=== PATIENT | male | born 1970 | race Caucasian/White ===

== ENCOUNTER → 2016-10-29 | Outpatient (CLI) | payer BC, OTHER ==
[~2016-10-29] MED LIST: CLR10 PO; MULT-884 PO; POTA20TA13 PO
[2016-10-29 12:58] VITALS: BP 131/82; PULSE 79; TEMP 36.9; O2SAT 96
--- NOTE | 2016-10-29 18:22 | Radiation Oncology Follow-Up ---
Radiation Oncology Follow-Up Date of Visit Oct 29, 2016. Radiation Completion Date 02/14/15 Diagnosis (1) Sarcoma Status: Acute Onset Date: 11/30/2014 Permanent Comment: Large 8.2 cm right neck mass Right neck mass biopsied 11/28/2014 revealing carcinoma Repeat biopsy 11/30/2014 revealing sarcoma Status post completion of radiation and chemotherapy following RTOG 9514 - completed 02/11/2015 Status post right modified radical dissection 04/16/2015 - No residual tumor Adjuvant chemotherapy completed 07/2015 Last Edited By: Erika Henriquez on Oct 29, 2016 18:15 Interim History Mr. 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 The patient completed radiation therapy and chemotherapy in January 2015 and then proceeded to have a right modified radical next dissection on 04/16/[address] Mcguire at [facility]. The pathology revealed no evidence of residual tumor in the patient was subsequently treated with adjuvant chemotherapy which completed in July 2015; the patient follows with Dr. Pj Freedman and Nettie Mendoza and medical oncology. We are now seeing the patient back in follow-up evaluation. Overall, the patient is doing relatively well. He has no complaints currently. He denies any difficulty with swallowing, dryness in the throat or taste. He has no skin issues at this time. He states his energy, appetite and weight are all stable. Allergies Coded Allergies: Animal Dander (Verified Allergy, Unknown, SNEEZY, WATERY EYES, 07/22/15) Home Medications Scheduled Loratadine (Claritin), 10 MG PO DAILY Multiple Vitamin (Multi Vitamin Daily), 1 TAB PO DAILY Potassium Chloride Microencaps (Potassium Chloride Er), 1 TAB PO BID Review of Systems Gastrointestinal: Symptoms: WNL Oral: Symptoms: No Problems Respiratory: Symptoms: WNL Urinary: Symptoms: WNL Skin: Symptoms: No Problems Physical Exam Vital Signs Date Time Temp Pulse Resp B/P Pulse Ox O2 Delivery O2 Flow Rate FiO2 10/29/16 12:58 36.9 79 16 131/82 96 General Appearance: WD/WN, no apparent distress Eyes: normal inspection ENT: normal ENT inspection Neck: supple, no adenopathy, + pertinent finding (s/p right neck dissection) Respiratory/Chest: chest non-tender, lungs clear, normal breath sounds, no respiratory distress Neurologic/Psychiatric: 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 TECHNIQUE: Axial images of the neck were obtained following intravenous injection of 94 cc of Optiray 320 IV. COMPARISON STUDY: Neck CT May 07, 2016. FINDINGS: Visualized portions of the intracranial contents are unremarkable. Mastoid air cells are clear. No suspicious osseous lesions are present. There are post surgical findings consistent with a right neck dissection. Infiltration with loss of fat planes is unchanged since prior exam and likely post therapeutic. No enlarged lymph nodes are identified. The appearance of the operative bed is unchanged exam May 07, 2016. There are no pathologically enlarged cervical lymph nodes. The chest will be reported separately. IMPRESSION: Stable postoperative findings status post right neck dissection since CT of May 07, 2016. No evidence of recurrent malignancy. CT SCAN OF THE CHEST WITH IV CONTRAST - 08/06/2016 CLINICAL HISTORY: Sarcoma. COMPARISON STUDY: Chest CT scans dated 05/07/2016 and 11/29/2014. TECHNIQUE: Following the IV administration of 94 cc of Optiray 320, CT scan of the thorax was performed from the thoracic inlet to the upper abdomen. Images are reviewed in the axial, sagittal, and coronal planes. IV contrast was administered without complication. The examination is degraded by streak artifact from the right arm which could not be elevated above the chest. FINDINGS: Thyroid: Imaged portions of the thyroid gland are normal in size and attenuation. Thoracic aorta: The thoracic aorta is normal in caliber and demonstrates standard 3-vessel arch anatomy. No aneurysm or dissection is seen. Heart: The heart is top normal in size and configuration, and without pericardial effusion. The pulmonary trunk is normal in caliber. Lungs and pleural spaces: There are small foci of bibasilar atelectasis. A calcified granuloma is seen at the right lung base. No concerning pulmonary lesion is identified. There is no airspace consolidation or pleural effusion. The trachea and central airways are clear. Mediastinum: There is no mediastinal lymphadenopathy. Lisa: Clear. Axillae: There is no axillary lymphadenopathy. Upper abdomen: There is a small hiatal hernia. Hepatic steatosis is observed. Partially visualized upper abdominal viscera is otherwise within normal limits. See report of abdominal CT performed concurrently for detailed intra-abdominal findings. Skeletal structures: No lytic or blastic bony lesions are seen. A bone island is incidentally noted in the left fourth rib. IMPRESSION: 1. There is no evidence of intrathoracic metastatic disease and there has been no significant change from 05/07/2016. 2. The lungs are clear. 3. Hepatic steatosis. ABDOMEN AND PELVIS CT WITH IV AND ORAL CONTRAST - 08/06/2016 CT DOSE: HISTORY: Soft tissues are, Sarcoma, soft TISSUE 08/03/16 CREAK 1.10 TECHNIQUE: Multiaxial CT images of the abdomen and pelvis were performed following the use of intravenous and oral contrast. COMPARISON STUDY: 05/07/2016 FINDINGS: The lung bases are clear. The liver, spleen, gallbladder, pancreas, kidneys, and adrenal glands are within normal limits. No bowel wall thickening or obstruction. The pelvic organs are unremarkable. No suspicious lytic or blastic osseous lesions. IMPRESSION: No significant abnormality identified within the abdomen or pelvis. No change from the prior study Assessment & Plan Mr. 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 The patient is now here for follow-up evaluation. His most recent set of CT staging scans reveals no evidence of radiographic recurrence. Clinically, there is no evidence of recurrence as well. We are happy with his progress overall. We would like to see him back in one-year for follow-up evaluation. The patient still continues to closely follow with medical oncology and we will defer imaging studies to them. The patient was encouraged to call suggest any questions or concerns or if he would like to be seen earlier. Total Time In Follow-Up I spent 20 minutes examining and counseling the patient. I spent 15 minutes completing this note. Copy To Pj Freedman D.O.; Nettie Mendoza CRNP; Rudy Mcguire M.D.
== END | disposition home or self-care (01) ==
LOC: C.ONC 12:49
PROVIDERS: ATTEND Physician Assistant Medical
DX: Z08 Encounter for follow-up examination after completed treatment for malignant neoplasm (principal); Z92.3 Personal history of irradiation; Z85.89 Personal history of malignant neoplasm of other organs and systems

== ENCOUNTER → 2016-11-02 | Outpatient (CLI) | payer BC ==
--- NOTE | 2016-11-02 13:47 | DIAGNOSTIC IMAGING REPORT ---
BILATERAL CAROTID DOPPLER STUDY HISTORY: Mental status change HX OF NEOPLASM CONNECTIVE HEAD NECK FACE COMPARISON: None. TECHNIQUE: Real-time, grayscale, and color Doppler sonography of the carotid arteries was performed. Imaging reviewed in the transverse and longitudinal planes. All measurements were calculated based on NASCET criteria. FINDINGS: Antegrade flow is seen in the bilateral vertebral arteries. The brachial pressures are hemodynamically similar. The peak systolic velocity within the right ICA is 64. The right systolic ratio is 0.7. The peak systolic velocity within the left ICA is 57. The left systolic ratio is 0.8. IMPRESSION: No hemodynamically significant stenosis seen within the carotid arteries. Interval resection of the soft tissue mass Electronically signed by: Oren Leroy M.D. 11/02/2016 1:46 PM Dictated Date/Time: 11/02/2016 1:45 PM
== END | disposition home or self-care (01) ==
LOC: C.ULTR 12:50
PROVIDERS: ATTEND Radiology Radiation Oncology
DX: C49.0 Malignant neoplasm of connective and soft tissue of head, face and neck (principal)

== ENCOUNTER → 2016-11-06 | Outpatient (CLI) | payer BC ==
[~2016-11-06] MED LIST changes: +OPTIRAY 320 IV PRN
--- NOTE | 2016-11-06 15:03 | DIAGNOSTIC IMAGING REPORT ---
CT SCAN OF THE CHEST WITH IV CONTRAST CLINICAL HISTORY: Sarcoma. COMPARISON STUDY: Chest CT scans dated 08/06/2016 and 11/29/2014. TECHNIQUE: Following the IV administration of 93 cc of Optiray 320, CT scan of the thorax was performed from the thoracic inlet to the upper abdomen. Images are reviewed in the axial, sagittal, and coronal planes. IV contrast was administered without complication. The examination is degraded by streak artifact from the right arm which could not be elevated above the chest. FINDINGS: Thyroid: Imaged portions of the thyroid gland are normal in size and attenuation. Thoracic aorta: The thoracic aorta is normal in caliber and demonstrates standard 3-vessel arch anatomy. No aneurysm or dissection is seen. Heart: The heart is top normal in size and configuration, and without pericardial effusion. The pulmonary trunk is normal in caliber. Lungs and pleural spaces: There are small foci of bibasilar atelectasis. A calcified granuloma is seen at the right lung base. No concerning pulmonary lesion is identified. There is no airspace consolidation or pleural effusion. The trachea and central airways are clear. Mediastinum: There is no mediastinal lymphadenopathy. Lisa: Clear. Axillae: There is no axillary lymphadenopathy. Upper abdomen: There is a small hiatal hernia. Hepatic steatosis is observed. Partially visualized upper abdominal viscera is otherwise within normal limits. See report of abdominal CT performed concurrently for detailed intra-abdominal findings. Skeletal structures: No lytic or blastic bony lesions are seen. A bone island is incidentally noted in the left fourth rib. IMPRESSION: 1. There is no evidence of intrathoracic metastatic disease and there has been no significant change from 08/06/2016. 2. The lungs are clear. 3. Hepatic steatosis. Electronically signed by: Blair Byrne M.D. 11/06/2016 3:01 PM Dictated Date/Time: 11/06/2016 2:59 PM
--- NOTE | 2016-11-06 15:05 | DIAGNOSTIC IMAGING REPORT ---
ABDOMEN AND PELVIS CT WITH IV AND ORAL CONTRAST CT DOSE: 2402.46 mGy.cm HISTORY: SARCOMA, SOFT TISSUE TECHNIQUE: Multiaxial CT images of the abdomen and pelvis were performed following the use of intravenous and oral contrast. COMPARISON STUDY: None. FINDINGS: The lung bases are clear. The spleen, gallbladder, pancreas, kidneys, and adrenal glands are within normal limits. No bowel wall thickening or obstruction. Normal bladder. No suspicious lytic or blastic osseous lesions. Tiny fat-containing umbilical hernia. Hepatic steatosis. No hepatic masses. Normal appendix. No retroperitoneal lymphadenopathy. IMPRESSION: No change from the prior studies. No evidence for metastatic disease within the abdomen or pelvis. Electronically signed by: Mp Garza M.D. 11/06/2016 3:03 PM Dictated Date/Time: 11/06/2016 2:58 PM
== END | disposition home or self-care (01) ==
LOC: C.CTS 14:26
PROVIDERS: ATTEND Nurse Practitioner
DX: C49.0 Malignant neoplasm of connective and soft tissue of head, face and neck (principal)

== ENCOUNTER → 2017-02-11 | Outpatient (CLI) | payer BC ==
--- NOTE | 2017-02-11 11:23 | DIAGNOSTIC IMAGING REPORT ---
CHEST CT WITH CONTRAST CT DOSE: HISTORY: Sarcoma 02/08/17 0916 CREAK 1.30 TECHNIQUE: Multiaxial CT images of the chest were performed following the intravenous administration of contrast. COMPARISON: 11/06/2016 FINDINGS: The lungs are clear. The mediastinal vascular structures are within normal limits. No mediastinal or hilar lymphadenopathy. No pleural effusion or pneumothorax. Limited views of the upper abdomen demonstrate a normal liver and spleen. Fatty infiltration of the liver IMPRESSION: No significant abnormality identified within the chest. Fatty infiltration of liver. No change from the prior exam. Electronically signed by: Oren Leroy M.D. 02/11/2017 11:22 AM Dictated Date/Time: 02/11/2017 11:19 AM
--- NOTE | 2017-02-11 11:24 | DIAGNOSTIC IMAGING REPORT ---
CT ABD/PELVIS IV AND ORAL CONT CLINICAL HISTORY: Sarcoma COMPARISON STUDY: 11/06/2016 TECHNIQUE: Following the IV administration of 116 mL of Optiray-320, CT scan of the abdomen and pelvis was performed from the lung bases to the proximal femurs. Images are reviewed in the axial, sagittal, and coronal planes. IV contrast was administered without complication. CT DOSE: 2373.01 mGy.cm FINDINGS: Lower chest: The heart is normal in size and configuration, without pericardial effusion. The lung bases and pleural spaces are clear. Liver: There is mild hepatic steatosis. No focal masses are visualized. Gallbladder: Unremarkable. Spleen: Normal in size and attenuation. Pancreas: Unremarkable. Adrenal glands: Unremarkable. Kidneys: There is symmetric renal cortical enhancement. The kidneys are normal in size without hydronephrosis. Bowel: There are no transition zones indicate bowel obstruction. The appendix appears normal. There is no acute diverticulitis. Peritoneum: There is no intraperitoneal free air or abdominal ascites. There is a small fat-containing umbilical hernia. Vasculature: The abdominal aorta is normal in course and caliber. Adenopathy: None. Pelvic viscera: The bladder, and pelvic viscera are unremarkable. Skeletal structures: There is a stable 8 mm sclerotic lesion within the left symphysis pubis likely representing a bone island. No destructive lesions are visualized. IMPRESSION: No evidence of metastatic disease within the abdomen or pelvis. Electronically signed by: Gregg Kaufman M.D. 02/11/2017 11:23 AM Dictated Date/Time: 02/11/2017 11:20 AM
--- NOTE | 2017-02-11 11:39 | DIAGNOSTIC IMAGING REPORT ---
CT NECK WITH INTRAVENOUS CONTRAST. HISTORY: Sarcoma. Follow-up. TECHNIQUE: Multiaxial CT images of the neck was performed following the use of intravenous contrast. COMPARISON STUDY: CT neck 08/06/2016. FINDINGS: Visualized portions of the intracranial contents are unremarkable. Mastoid air cells are clear. No suspicious osseous lesions are present. There are post surgical findings consistent with a right neck dissection. Infiltration with loss of fat planes is unchanged since prior exam and likely post therapeutic. No enlarged lymph nodes are identified. The appearance of the operative bed is unchanged since the prior study. There are no pathologically enlarged cervical lymph nodes. Mild atrophy right parotid gland, unchanged. There appears be partial resection of the right internal jugular vein, unchanged. The carotid arteries are widely patent. Stable palatine tonsil hypertrophy The chest will be reported separately. IMPRESSION: Stable postoperative findings status post right neck dissection. No evidence of recurrent malignancy Electronically signed by: Mp Garza M.D. 02/11/2017 11:38 AM Dictated Date/Time: 02/11/2017 11:32 AM
== END | disposition home or self-care (01) ==
LOC: C.CTS 10:26
PROVIDERS: ATTEND Internal Medicine Hematology & Oncology
DX: C49.0 Malignant neoplasm of connective and soft tissue of head, face and neck (principal); K76.0 Fatty (change of) liver, not elsewhere classified

== ENCOUNTER → 2017-06-16 | Outpatient (CLI) | payer BC ==
--- NOTE | 2017-06-16 13:12 | DIAGNOSTIC IMAGING REPORT ---
CT OF THE CHEST WITH IV CONTRAST CLINICAL HISTORY: Sarcoma. Follow-up examination. COMPARISON STUDY: 02/09/2017 TECHNIQUE: Following the IV administration of 93 mL of Optiray-320, CT of the thorax was performed from the thoracic inlet to the lung bases. Images are reviewed in the axial, sagittal, and coronal planes. IV contrast was administered without complication. A dose lowering technique was utilized adhering to the principles of ALARA. CT DOSE: 2691.72 mGy.cm FINDINGS: Thyroid: Imaged portions of the thyroid gland are normal in appearance. Thoracic aorta: The thoracic aorta is normal in course and caliber, noting standard 3-vessel arch anatomy. No aneurysm or dissection is seen. Pulmonary vasculature: The pulmonary trunk is normal in caliber. There are no central filling defects identified to suggest pulmonary embolus. Note that this examination was not protocoled for the evaluation of pulmonary emboli. HEART: The heart is normal in size and configuration, without pericardial effusion. Lungs and pleural spaces: No pleural effusions are visualized. There is no focal pulmonary consolidation. Mediastinum: There is no mediastinal lymphadenopathy. Lisa: Clear. Axilla: Clear. Upper abdomen: Partially visualized upper abdominal viscera is within normal limits. Skeletal structures: There are no lytic or blastic osseous lesions. IMPRESSION: No acute intrathoracic findings. No CT evidence of intrathoracic metastatic disease. Electronically signed by: Gregg Kaufman M.D. 06/16/2017 1:11 PM Dictated Date/Time: 06/16/2017 1:07 PM
--- NOTE | 2017-06-16 13:28 | DIAGNOSTIC IMAGING REPORT ---
ABD/PELVIS IV AND ORAL CONT CT DOSE: HISTORY: Sarcoma SARCOMA TECHNIQUE: Multiaxial CT images of the abdomen and pelvis were performed following the use of intravenous and oral contrast. A dose lowering technique was utilized adhering to the principles of ALARA. COMPARISON STUDY: 02/11/2017 FINDINGS: Lung bases are considered clear. Small Calcified granuloma right base unchanged. Mild fatty infiltration of liver. Spleen is uniform. Small accessory spleen is present and is stable. Pancreas is uniform throughout. Bowel pattern is remarkable for scattered plaque diverticulosis. There is no evidence for acute diverticulitis. There is no significant abdominal pelvic or inguinal adenopathy. Several small inguinal nodes are present which are felt to be benign by size and morphology characteristics and are unchanged in the prior exam. The appendix is normal. Osseous structures demonstrate several benign bone islands unchanged from the prior exam. IMPRESSION: Negative study of the abdomen and pelvis. Mild fatty infiltration of liver. No change from the prior exam. The above report was generated using voice recognition software. It may contain grammatical, syntax or spelling errors. Electronically signed by: Oren Leroy M.D. 06/16/2017 1:27 PM Dictated Date/Time: 06/16/2017 1:15 PM
--- NOTE | 2017-06-16 13:31 | DIAGNOSTIC IMAGING REPORT ---
CT NECK WITH INTRAVENOUS CONTRAST. CLINICAL HISTORY: SARCOMA. Follow-up.. TECHNIQUE: Multiaxial CT images of the neck performed following the use of intravenous contrast. COMPARISON STUDY: Neck CT 02/11/2017. FINDINGS: The visualized brain parenchyma and orbits are unremarkable. Postoperative changes consistent with right neck dissection are again noted. Stable scarlike densities within the right neck at the resection site. No new soft tissue masses identified. Subcentimeter upper posterior neck/occipital lymph nodes remain stable. Dominant lymph node measures 6 mm. No significant cervical lymphadenopathy. Prominent some anterior gland remain stable. No soft tissue masses identified. The airway remains patent. The thyroid gland enhances normally. The lung apices are clear. No suspicious lytic or blastic osseous lesions. The paranasal sinuses and mastoid air cells are clear. The major cervical vessels partial resection of the right internal jugular vein is again noted. Otherwise, the remaining major cervical vessels enhance normally. Soft tissue surrounding the carotid bifurcation and proximal right internal carotid artery also remain stable and favors postoperative change. Partial resection/atrophy of the right parotid and submandibular glands are again noted. IMPRESSION: Overall, no significant change compared to prior study. No evidence for recurrent malignancy or metastatic disease. Postoperative changes within the right neck are again noted. Electronically signed by: Mp Garza M.D. 06/16/2017 1:29 PM Dictated Date/Time: 06/16/2017 1:18 PM
== END | disposition home or self-care (01) ==
LOC: C.CTS 12:36
PROVIDERS: ATTEND Family Medicine
DX: C49.0 Malignant neoplasm of connective and soft tissue of head, face and neck (principal)

== ENCOUNTER → 2017-11-02 | Outpatient (CLI) | payer BC ==
[~2017-11-02] MED LIST changes: -OPTIRAY 320 IV PRN
[2017-11-02 13:45] VITALS: BP 117/79; PULSE 84; TEMP 36.8; O2SAT 97
--- NOTE | 2017-11-02 16:01 | Radiation Oncology Follow-Up ---
Radiation Oncology Follow-Up Date of Visit Nov 02, 2017. 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 He has noted no changes to the neck. He has noted no masses or tenderness. He did have edema in the area of the chin. This is stable. He has had recheck scanning as well as laboratory studies which we have all been stable. He follows with medical oncology. He has had recheck CT scanning February 11, 2017 as well as June 16, 2017. Allergies Coded Allergies: Animal Dander (Verified Allergy, Unknown, SNEEZY, WATERY EYES, 07/22/15) Home Medications Scheduled Loratadine (Claritin), 10 MG PO DAILY Multiple Vitamin (Multi Vitamin Daily), 1 TAB PO DAILY Potassium Chloride Microencaps (Potassium Chloride Er), 1 TAB PO BID Review of Systems Gastrointestinal: Symptoms: WNL Oral: Symptoms: No Problems Respiratory: Symptoms: WNL Urinary: Symptoms: WNL Skin: Symptoms: No Problems Physical Exam Vital Signs Date Time Temp Pulse Resp B/P (MAP) Pulse Ox O2 Delivery O2 Flow Rate FiO2 11/02/17 13:45 36.8 84 20 117/79 97 Fatigue: None General Appearance: no apparent distress Eyes: normal inspection, EOMI ENT: normal ENT inspection, hearing grossly normal, pharynx normal, + pertinent finding (No trismus) Neck: + pertinent finding (Postoperative changes of the right neck. There are no visible or palpable lesions or lymphadenopathy. He has good range of motion of the neck.) Respiratory/Chest: lungs clear, no respiratory distress, no accessory muscle use Cardiovascular: regular rate, rhythm, no gallop, no murmur Neurologic/Psychiatric: no motor/sensory deficits, alert, normal mood/affect Skin: warm/dry Pain Management Patient Reports Pain: No Pain Management Plan He denies pain therefore requires no pain management. Laboratory Laboratory Results: were reviewed, and no pertinent findings Pathology Pathology Results: not applicable Imaging Imaging Studies: were reviewed, and pertinent findings noted below Imaging Comments Patient: JAVI MARTELL Address1: [address] Rec: [id number] Address2: Acct ID: [id number] [facility] Zip: [place] [address] Date: 1970 Sex: M Room/Bed: Ref Phy: No Doctor, Assigned SC: C.CTS Att Phy: Anuj Elizabeth D.O. Report #: [id number] Alexa Phy: No Doctor, Assigned Test: NCKW Admit Phy: Recruitment Intern: RADU Interpreting Phy: Mp Garza MD Diagnosis: SARCOMA Ordering Phy: Anuj Elizabeth D.O. Service Date: 06/16/17 Admit Date: 06/16/17 MNE: [id number] CONF: DICTATED BY: Mp Garza M.D.]] CC: Anuj Elizabeth D.O. No Doctor, Assigned Endcc: [~ rep ct add3]] CT NECK WITH INTRAVENOUS CONTRAST. CLINICAL HISTORY: SARCOMA. Follow-up.. TECHNIQUE: Multiaxial CT images of the neck performed following the use of intravenous contrast. COMPARISON STUDY: Neck CT 02/11/2017. FINDINGS: The visualized brain parenchyma and orbits are unremarkable. Postoperative changes consistent with right neck dissection are again noted. Stable scarlike densities within the right neck at the resection site. No new soft tissue masses identified. Subcentimeter upper posterior neck/occipital lymph nodes remain stable. Dominant lymph node measures 6 mm. No significant cervical lymphadenopathy. Prominent some anterior gland remain stable. No soft tissue masses identified. The airway remains patent. The thyroid gland enhances normally. The lung apices are clear. No suspicious lytic or blastic osseous lesions. The paranasal sinuses and mastoid air cells are clear. The major cervical vessels partial resection of the right internal jugular vein is again noted. Otherwise, the remaining major cervical vessels enhance normally. Soft tissue surrounding the carotid bifurcation and proximal right internal carotid artery also remain stable and favors postoperative change. Partial resection/atrophy of the right parotid and submandibular glands are again noted. IMPRESSION: Overall, no significant change compared to prior study. No evidence for recurrent malignancy or metastatic disease. Postoperative changes within the right neck are again noted. Electronically signed by: Mp Garza M.D. 06/16/2017 1:29 PM Dictated Date/Time: 06/16/2017 1:18 PM Patient: JAVI MARTELL Address1: [address] Rec: [id number] Address2: Acct ID: [id number] [facility] Zip: [place] [address] Date: 1970 Sex: M Room/Bed: Ref Phy: No Doctor, Assigned SC: C.CTS Att Phy: Anuj Elizabeth D.O. Report #: [id number] Alexa Phy: No Doctor, Assigned Test: CX Admit Phy: Recruitment Intern: RADU Interpreting Phy: Gregg Kaufman M.D. Diagnosis: SARCOMA Ordering Phy: Anuj Elizabeth D.O. Service Date: 06/16/17 Admit Date: 06/16/17 MNE: [id number] CONF: DICTATED BY: Gregg Kaufman M.D.]] CC: Anuj Elizabeth D.O. No Doctor, Assigned Endcc: [~ rep ct add3]] CT OF THE CHEST WITH IV CONTRAST CLINICAL HISTORY: Sarcoma. Follow-up examination. COMPARISON STUDY: 02/09/2017 TECHNIQUE: Following the IV administration of 93 mL of Optiray-320, CT of the thorax was performed from the thoracic inlet to the lung bases. Images are reviewed in the axial, sagittal, and coronal planes. IV contrast was administered without complication. A dose lowering technique was utilized adhering to the principles of ALARA. CT DOSE: 2691.72 mGy.cm FINDINGS: Thyroid: Imaged portions of the thyroid gland are normal in appearance. Thoracic aorta: The thoracic aorta is normal in course and caliber, noting standard 3-vessel arch anatomy. No aneurysm or dissection is seen. Pulmonary vasculature: The pulmonary trunk is normal in caliber. There are no central filling defects identified to suggest pulmonary embolus. Note that this examination was not protocoled for the evaluation of pulmonary emboli. HEART: The heart is normal in size and configuration, without pericardial effusion. Lungs and pleural spaces: No pleural effusions are visualized. There is no focal pulmonary consolidation. Mediastinum: There is no mediastinal lymphadenopathy. Lisa: Clear. Axilla: Clear. Upper abdomen: Partially visualized upper abdominal viscera is within normal limits. Skeletal structures: There are no lytic or blastic osseous lesions. IMPRESSION: No acute intrathoracic findings. No CT evidence of intrathoracic metastatic disease. Electronically signed by: Gregg Kaufman M.D. 06/16/2017 1:11 PM Dictated Date/Time: 06/16/2017 1:07 PM Patient: JAVI MARTELL Address1: [address] [facility] [address] [facility] Rec: [id number] Address2: Acct ID: [id number] [facility] Zip: [place] [address] Date: 1970 Sex: M Room/Bed: Ref Phy: No Doctor, Assigned SC: RajatCTS Att Phy: Anuj Elizabeth D.O. Report #: [id number] Alexa Phy: No Doctor, Assigned Test: APW Admit Phy: Recruitment Intern: RADU Interpreting Phy: Oren Leroy M.D. Diagnosis: SARCOMA Ordering Phy: Anuj Elizabeth D.O. Service Date: 06/16/17 Admit Date: 06/16/17 MNE: [id number] CONF: DICTATED BY: Oren Leroy M.D.]] CC: Anuj Elizabeth D.O. No Doctor, Assigned Endcc: [~ rep ct add3]] ABD/PELVIS IV AND ORAL CONT CT DOSE: HISTORY: Sarcoma SARCOMA TECHNIQUE: Multiaxial CT images of the abdomen and pelvis were performed following the use of intravenous and oral contrast. A dose lowering technique was utilized adhering to the principles of ALARA. COMPARISON STUDY: 02/11/2017 FINDINGS: Lung bases are considered clear. Small Calcified granuloma right base unchanged. Mild fatty infiltration of liver. Spleen is uniform. Small accessory spleen is present and is stable. Pancreas is uniform throughout. Bowel pattern is remarkable for scattered plaque diverticulosis. There is no evidence for acute diverticulitis. There is no significant abdominal pelvic or inguinal adenopathy. Several small inguinal nodes are present which are felt to be benign by size and morphology characteristics and are unchanged in the prior exam. The appendix is normal. Osseous structures demonstrate several benign bone islands unchanged from the prior exam. IMPRESSION: Negative study of the abdomen and pelvis. Mild fatty infiltration of liver. No change from the prior exam. The above report was generated using voice recognition software. It may contain grammatical, syntax or spelling errors. Electronically signed by: Oren Leroy M.D. 06/16/2017 1:27 PM Dictated Date/Time: 06/16/2017 1:15 PM Assessment & Plan Plan: Continue regular follow-up with his PCP and medical oncology. He has a recheck visit December 20, 2017. He will likely be scheduled for recheck scans. We asked him to return to our office in 1 year. He may call if he has any questions or concerns in the interim. Thyroid function studies are being followed by medical oncology. Carotid artery evaluations are part of the CT of the neck and therefore ultrasounds were not ordered. Total Time In Follow-Up I spent 20 minutes speaking to the patient and performing examination. I spent 15 minutes reviewing information and completing this note. Copy To Danny Spear MD
== END | disposition home or self-care (01) ==
LOC: C.ONC 13:27
PROVIDERS: ATTEND Physician Assistant Medical
DX: Z08 Encounter for follow-up examination after completed treatment for malignant neoplasm (principal); Z92.3 Personal history of irradiation; Z85.89 Personal history of malignant neoplasm of other organs and systems

== ENCOUNTER → 2017-12-13 | Outpatient (CLI) | payer BC ==
[~2017-12-13] MED LIST changes: +OPTIRAY 320 IV PRN
--- NOTE | 2017-12-13 14:15 | DIAGNOSTIC IMAGING REPORT ---
CT ABD/PELVIS IV AND ORAL CONT CLINICAL HISTORY: SARCOMA COMPARISON STUDY: 06/16/2017 TECHNIQUE: Following the IV administration of 93 mL of Optiray-320, CT scan of the abdomen and pelvis was performed from the lung bases to the proximal femurs. Images are reviewed in the axial, sagittal, and coronal planes. IV contrast was administered without complication. A dose lowering technique was utilized adhering to the principles of ALARA. CT DOSE: FINDINGS: Lower chest: The heart is normal in size and configuration, without pericardial effusion. The lung bases and pleural spaces are clear. Liver: There is mild hepatic steatosis. No focal hepatic masses are visualized. Portal vein appears patent. Gallbladder: Unremarkable. Spleen: Normal in size and attenuation. Pancreas: Unremarkable. Adrenal glands: Unremarkable. Kidneys: There is symmetric renal cortical enhancement. The kidneys are normal in size without hydronephrosis. Bowel: There are no transition zones indicate bowel obstruction. Appendix appears normal. There is no acute diverticulitis. Peritoneum: There is no intraperitoneal free air or abdominal ascites. Vasculature: The abdominal aorta is normal in course and caliber. Adenopathy: None. Pelvic viscera: The bladder, and pelvic viscera are unremarkable. Skeletal structures: No destructive osseous lesions are seen. IMPRESSION: No evidence of metastatic disease within the abdomen or pelvis. Electronically signed by: Gregg Kaufman M.D. 12/13/2017 2:13 PM Dictated Date/Time: 12/13/2017 2:10 PM
--- NOTE | 2017-12-13 14:22 | DIAGNOSTIC IMAGING REPORT ---
CT OF THE NECK WITH CONTRAST CLINICAL HISTORY: Sarcoma. COMPARISON STUDY: CT of the neck June 16, 2017. TECHNIQUE: Axial images of the neck were obtained following intravenous injection of 93 cc Optiray 320 IV. FINDINGS: Visualized portions of the intracranial contents are unremarkable. There is mild mucosal thickening of the sinuses. Mastoid air cells are clear. Postoperative findings within the right neck are noted consistent with a right neck dissection. The postoperative appearance is unchanged since previous exam. No pathologically enlarged cervical lymph nodes are present. There is no evidence for recurrent malignancy on this examination within the neck. No suspicious osseous lesion is present. The chest CT will be reported separately. IMPRESSION: No evidence for recurrent malignancy status post right neck dissection. Stable postoperative findings. Electronically signed by: Hira Reed M.D. 12/13/2017 2:21 PM Dictated Date/Time: 12/13/2017 2:11 PM
--- NOTE | 2017-12-13 14:25 | DIAGNOSTIC IMAGING REPORT ---
CT SCAN OF THE CHEST WITH IV CONTRAST CLINICAL HISTORY: Sarcoma. COMPARISON STUDY: Chest CT scans dated 06/16/2017 and 11/29/2014. TECHNIQUE: Following the IV administration of 93 cc of Optiray 320, CT scan of the thorax was performed from the thoracic inlet to the upper abdomen. Images are reviewed in the axial, sagittal, and coronal planes. IV contrast was administered without complication. The examination is degraded by streak artifact from the right arm which could not be elevated above the chest. A dose lowering protocol was utilized adhering to the principles of ALARA. FINDINGS: Thyroid: Imaged portions of the thyroid gland are normal in size and attenuation. Thoracic aorta: The thoracic aorta is normal in caliber and demonstrates standard 3-vessel arch anatomy. No aneurysm or dissection is seen. Heart: The heart is top normal in size and without pericardial effusion. The pulmonary trunk is normal in caliber. Lungs and pleural spaces: There are small foci of bibasilar atelectasis. A calcified granuloma is noted at the right lung base. No concerning pulmonary lesion is identified. There is no airspace consolidation or pleural effusion. The trachea and central airways are clear. Mediastinum: There is no mediastinal lymphadenopathy. Lisa: Clear. Axillae: There is no axillary lymphadenopathy. Upper abdomen: There is a small hiatal hernia. Hepatic steatosis is observed. Partially visualized upper abdominal viscera is otherwise within normal limits. See report of abdominal CT performed concurrently for detailed intra-abdominal findings. Skeletal structures: No lytic or blastic bony lesions are seen. A bone island is incidentally noted in the left fourth rib. IMPRESSION: 1. There is no evidence of intrathoracic metastatic disease and there has been no significant change from 06/16/2017. 2. The lungs are clear. 3. Hepatic steatosis. Electronically signed by: Blair Byrne M.D. 12/13/2017 2:24 PM Dictated Date/Time: 12/13/2017 2:17 PM
== END | disposition home or self-care (01) ==
LOC: C.CTS 11:27
PROVIDERS: ATTEND Internal Medicine Hematology & Oncology
DX: C49.0 Malignant neoplasm of connective and soft tissue of head, face and neck (principal); K76.0 Fatty (change of) liver, not elsewhere classified